=== PATIENT | male | born 1980 | race Caucasian/White ===

== ENCOUNTER 2017-10-02 16:37 | Emergency (ER) | payer OTHER ==
[~2017-10-02] VITALS: Ht 182.9 cm; Wt 104.3 kg
[~2017-10-02 16:37] MED LIST: CEPH500 PO; HYDACE5 PO; Naprosyn500 MG PO; Norco 5-325 Ta1 EACH PO; PENVK500 PO; SULTRIDS PO; Veetids 500500 MG PO
[2017-10-02] MEDS ORDERED: CYCL10 PO (17:19)
[2017-10-02] MEDS ORDERED: IBUP600 PO (17:19)
== END 2017-10-02 17:40 | disposition home or self-care (01) ==
LOC: ER 16:37
DX: G89.29 Other chronic pain (principal); M54.5 Low back pain; F17.200 Nicotine dependence, unspecified, uncomplicated
CPT/HCPCS: 99283